=== PATIENT | female | born 1950 | race Caucasian/White ===

== ENCOUNTER → 2017-05-01 | Outpatient (CLI) | payer MEDICARE, OTHER ==
[~2017-05-01] MED LIST: ASCO500C14; ASP81TEC PO; ATOR10TA66 PO; CALC-72; CALC-787 PO; CALC-80 PO; CINNAMON; CPR500T PO; EST.625T PO; ESTR1TAB24 PO; FISH OIL 1,2001 EAC1 PO; HYDR1TAB PO; LSNP20T PO; METF750T2 PO; METR500T PO; MULT-608; MULT-874 PO; NIA500ERT PO; OMG1KC; SITA100T PO
[2017-05-01 10:42] LABS: BLOOD UREA NITROGEN 18 MG/DL (7-18); BUN/CREATININE RATIO 23; CREATININE SERUM 0.78 MG/DL (0.60-1.30); GFR ESTIMATED > 60
--- NOTE | 2017-05-01 11:38 | Diagnostic Imaging Report ---
PROCEDURE: US Thyroid. TECHNIQUE: Multiple real-time grayscale images were obtained of the thyroid in various projections. INDICATION: Followup thyroid nodules. FINDINGS: The right thyroid lobe is 5.3 x 2.3 x 1.8 cm. There is a 1 cm colloid cyst seen in the upper right thyroid lobe. In the lower aspect of the left thyroid lobe, there is a hypoechoic nodule with possible associated calcification and without internal vascularity seen. This is 8 mm in size and is similar to the prior exam of 11/23/2015. A few other smaller hypoechoic lesions are also seen in the thyroid gland with at least some (if not most of them) being colloid cysts. IMPRESSION: There are multiple colloid cysts seen. The most prominent possibly solid lesion is an 8 mm hypoechoic nodule in the lower aspect of the left thyroid lobe without change from the 11/23/2015 exam. Dictated by: Dictated on workstation # [id number]
== END ==
LOC: RAD 09:27
PROVIDERS: ATTEND Otolaryngology Otolaryngology/Facial Plastic Surgery
DX: E04.2 Nontoxic multinodular goiter (principal); E89.0 Postprocedural hypothyroidism
CPT/HCPCS: 36415; 76536; 82565; 84443; 84520

== ENCOUNTER → 2018-05-06 | Outpatient (CLI) | payer MEDICARE, OTHER ==
--- NOTE | 2018-05-06 12:36 | Diagnostic Imaging Report ---
INDICATION: Routine screening. COMPARISON: 03/11/2015 and 02/24/2014. TECHNIQUE: 2D and 3D bilateral screening mammography was performed with CAD. FINDINGS: Scattered fibroglandular densities are identified bilaterally. The parenchymal pattern is stable. A probable intramammary lymph node in the right breast is noted. No spiculated mass or malignant appearing microcalcifications are seen. The axillae are unremarkable. IMPRESSION: No mammographic features suspicious for malignancy are identified. ACR BI-RADS Category 2: Benign findings. Result letter will be mailed to the patient. Note: At least 10% of breast cancer is not imaged by mammography. Dictated by: Dictated on workstation # [id number]
== END ==
LOC: RAD 09:40
PROVIDERS: ATTEND Obstetrics & Gynecology
DX: Z12.31 Encounter for screening mammogram for malignant neoplasm of breast (principal)
CPT/HCPCS: 77067

== ENCOUNTER → 2019-05-11 | Outpatient (CLI) | payer MEDICARE, OTHER ==
--- NOTE | 2019-05-11 19:05 | Diagnostic Imaging Report ---
INDICATION: Routine screening. COMPARISON: Comparison is made with prior mammograms from 05/06/2018 and 03/11/2015. TECHNIQUE: 2-D and 3-D bilateral screening mammography was performed. The current study was also evaluated with a Computer Aided Detection (CAD) system. 3-D tomosynthesis was also performed and reviewed. FINDINGS: Scattered fibroglandular densities are identified bilaterally. Multiple nodular densities in the left breast appear to be fairly stable and most consistent with intramammary lymph nodes. Nodular density in the inferior and medial right breast appears more prominent. This is circumscribed and may represent an intramammary lymph node as well, but additional views are recommended. No suspicious microcalcifications are seen. Axillae are unremarkable. IMPRESSION: Slight increase in size of a circumscribed nodule in the lower-inner right breast mid depth. Further evaluation with additional views and ultrasound is recommended. ACR BI-RADS Category 0: Incomplete. (Needs additional imaging evaluation). Result letter will be mailed to the patient. Note: At least 10% of breast cancer is not imaged by mammography. Dictated by: Dictated on workstation # [id number]
== END ==
LOC: RAD 11:19
PROVIDERS: ATTEND Obstetrics & Gynecology
DX: Z12.31 Encounter for screening mammogram for malignant neoplasm of breast (principal); N63.14 Unspecified lump in the right breast, lower inner quadrant
CPT/HCPCS: 77067

== ENCOUNTER → 2019-05-11 | Outpatient (CLI) | payer MEDICARE, OTHER ==
--- NOTE | 2019-05-11 13:03 | Diagnostic Imaging Report ---
PROCEDURE: US Thyroid. TECHNIQUE: Multiple real-time grayscale images were obtained of the thyroid in various projections. INDICATION: Multinodular goiter. Correlation is made with prior thyroid ultrasound from 05/01/2017. FINDINGS: The right lobe of the thyroid measures 5.0 x 1.8 x 1.9 cm and the left lobe measures 4.4 x 1.8 x 2.2 cm. Bilateral hypoechoic nodules are present. Nodule in the lower pole of left lobe measures approximately 7 mm x 6 mm x 8 mm, similar to prior exam. There is a small calcification. Nodule in the upper pole of the right lobe measures 1.4 x 0.8 x 1.3 cm. This compares with approximately 1.0 x 1.0 x 0.7 cm. No new mass is seen. IMPRESSION: Slight increase in size of hypoechoic nodule in upper pole of right lobe when compared with examination two years earlier. Continued follow-up could be performed. Dictated by: Dictated on workstation # [id number]
== END ==
LOC: RAD 11:25
PROVIDERS: ATTEND Otolaryngology Otolaryngology/Facial Plastic Surgery
DX: E04.2 Nontoxic multinodular goiter (principal)
CPT/HCPCS: 36415; 76536; 84443

== ENCOUNTER → 2019-05-15 | Outpatient (CLI) | payer MEDICARE, OTHER ==
--- NOTE | 2019-05-15 16:34 | Diagnostic Imaging Report ---
INDICATION: Abnormal right mammogram. COMPARISON: Correlation made with diagnostic study of earlier the same day. EXAMINATION: Sonographic interrogation of the inner right breast was performed. FINDINGS: There are two lymph nodes identified in the inner portion of the right breast. One lymph node at 2:30 location, 4 cm from the nipple, measures 7 mm x 4 mm x 6 mm. This likely represents the nodule noted mammographically. A second lymph node is seen at 3 o'clock, 2 cm from the nipple, measuring 5 mm x 4 mm x 7 mm. No suspicious masses are seen. IMPRESSION: Intraparenchymal lymph nodes in the right breast, accounting for the mammographic density. Patient may return to routine annual screening mammography. ACR BI-RADS Category 2: Benign findings. Result letter will be mailed to the patient. Note: At least 10% of breast cancer is not imaged by mammography. Dictated on workstation # [id number]
--- NOTE | 2019-05-15 16:39 | Diagnostic Imaging Report ---
INDICATION: Right breast density. Patient presents for additional views. COMPARISON: Correlation is made with recent screening study from 05/11/2019. EXAMINATION: Unilateral right 2D and 3D diagnostic mammography was performed with CAD. This included spot compression, CC and ML views as well as conventional 90 degree lateral view. FINDINGS: Additional views confirmed the presence of a circumscribed nodule in the inner aspect of the right breast, approximately 5 cm from the nipple. This measures 6-7 mm in size. No suspicious calcifications are seen. IMPRESSION: Circumscribed nodule inner right breast, 5 cm from the nipple. Further evaluation with ultrasound is recommended and will be performed today. ACR BI-RADS Category 0: Incomplete. (Needs additional imaging evaluation). Result letter will be mailed to the patient. Note: At least 10% of breast cancer is not imaged by mammography. Dictated on workstation # [id number]
== END ==
LOC: RAD 12:57
PROVIDERS: ATTEND Obstetrics & Gynecology
DX: N63.10 Unspecified lump in the right breast, unspecified quadrant (principal)

== ENCOUNTER 2020-01-18 17:35 | Inpatient (IN) | payer MEDICARE, OTHER ==
[2020-01-18] VITALS (9 sets, daily range): BP systolic 97–144; BP diastolic 56–96
[~2020-01-18] VITALS: Ht 170 cm; Wt 116.5 kg
--- NOTE | 2020-01-18 17:46 | ED Cough/URI ---
General Chief Complaint: Respiratory Problems Stated Complaint: SOB/L SIDE BACK PAIN WITH BREATHING Source: patient Exam Limitations: no limitations History of Present Illness Date Seen by Provider: Jan 18, 2020 Time Seen by Provider: 17:44 Initial Comments To ER from home with reports of shortness of breath, pain on deep breathing. The pain is in the left lower thorax in a BM this morning. She had a total shoulder replacement about 8 weeks ago at a surgery Center in [place]. She's been homebound and mound [facility] with the exception of 2 trips to [facility] for physical therapy. She denies fevers or cough. Concern today is for PE. Timing/Duration: constant Severity/Quality: no cough Associated Symptoms: cough, shortness of breath Allergies and Home Medications Allergies Coded Allergies: No Known Drug Allergies (Verified , 12/16/09) Home Medications Atorvastatin Calcium 10 Mg Tablet, 10 MG PO HS, (Reported) Estradiol 1 Mg Tablet, 1 MG PO DAILY, (Reported) Hydrocodone Bit/Acetaminophen 1 Each Tablet, 1-2 EACH PO Q4HR PRN, (Reported) Lisinopril 20 Mg Tab, 40 MG PO DAILY, (Reported) Metformin Hcl 750 Mg Tab.sr.24h, 1.5 EACH PO BID WITH MEALS, (Reported) Multivitamin/Iron/Folic Acid 1 Each Tablet, 1 EACH PO DAILY, (Reported) Sitagliptin Phosphate 100 Mg Tablet, 0.5 TAB PO DAILY, (Reported) Patient Home Medication List Home Medication List Reviewed: Yes Review of Systems Review of Systems Constitutional: see HPI; No chills, No fever EENTM: see HPI Respiratory: see HPI, dyspnea on exertion, short of breath Cardiovascular: see HPI, chest pain (posterior left) Genitourinary: no symptoms reported Musculoskeletal: no symptoms reported Skin: no symptoms reported Psychiatric/Neurological: No Symptoms Reported Hematologic/Lymphatic: No Symptoms Reported Past [place]wx[place]-Hmednd-Ldxbuu Hx Patient Social History Recent Foreign Travel: No Contact w/Someone Who Travel: No Immunizations Up To Date Date of Influenza Vaccine: Jun 28, 2012 Past Medical History Reproductive Disorders: No Physical Exam Vital Signs - First Documented 01/18/20 17:38 Temp 37.4 Pulse 102 Resp 22 B/P (MAP) 139/84 (102) Pulse Ox 98 O2 Delivery Room Air Capillary Refill : Height: '" Weight: lbs. oz. kg; BMI Method: General Appearance: WD/WN, no apparent distress Eyes: Bilateral Eye Normal Inspection, Bilateral Eye PERRL, Bilateral Eye EOMI HEENT: PERRL/EOMI, normal ENT inspection Neck: non-tender, full range of motion Respiratory: no respiratory distress, no accessory muscle use, other (lung greenwood are clear, the posterior left thorax lower is tender to palpation) Cardiovascular: no murmur, tachycardia (tachycardic at about 110 regular narrow complex, oxygen saturation 99% room air.) Gastrointestinal: normal bowel sounds, soft Extremities: other (there is no obvious unilateral leg swelling there is no erythema of either lower extremity) Neurologic/Psychiatric: alert, normal mood/affect, oriented x 3 Skin: normal color, warm/dry Focused Exam Lactate Level 01/18/20 18:39: Lactic Acid Level Laboratory Tests Test 01/18/20 18:39 Progress/Results/Core Measures Suspected Sepsis SIRS Temperature: Pulse: Respiratory Rate: Laboratory Tests 01/18/20 17:40: White Blood Count 15.9H Blood Pressure / Mean: 01/18/20 18:39: Laboratory Tests 01/18/20 17:40: Creatinine 1.15, Platelet Count 232, Total Bilirubin 0.4 Results/Orders Lab Results Laboratory Tests Test 01/18/20 17:40 01/18/20 18:02 01/18/20 18:39 Range/Units White Blood Count 15.9 H 4.3-11.0 10^3/uL Red Blood Count 4.57 4.35-5.85 10^6/uL Hemoglobin 13.7 11.5-16.0 G/DL Hematocrit 42 35-52 % Mean Corpuscular Volume 91 80-99 FL Mean Corpuscular Hemoglobin 30 25-34 PG Mean Corpuscular Hemoglobin Concent 33 32-36 G/DL Red Cell Distribution Width 13.5 10.0-14.5 % Platelet Count 232 130-400 10^3/uL Mean Platelet Volume 10.2 7.4-10.4 FL Neutrophils (%) (Auto) 70 42-75 % Lymphocytes (%) (Auto) 23 12-44 % Monocytes (%) (Auto) 6 0-12 % Eosinophils (%) (Auto) 1 0-10 % Basophils (%) (Auto) 0 0-10 % Neutrophils # (Auto) 11.1 H 1.8-7.8 X 10^3 Lymphocytes # (Auto) 3.7 1.0-4.0 X 10^3 Monocytes # (Auto) 0.9 0.0-1.0 X 10^3 Eosinophils # (Auto) 0.2 0.0-0.3 10^3/uL Basophils # (Auto) 0.0 0.0-0.1 10^3/uL Neutrophils % (Manual) 61 % Lymphocytes % (Manual) 25 % Monocytes % (Manual) 2 % Eosinophils % (Manual) 3 % Basophils % (Manual) 1 % Reactive Lymphocytes 8 % Blood Morphology Comment NORMAL Sodium Level 140 135-145 MMOL/L Potassium Level 4.1 3.6-5.0 MMOL/L Chloride Level 107 98-107 MMOL/L Carbon Dioxide Level 19 L 21-32 MMOL/L Anion Gap 14 5-14 MMOL/L Blood Urea Nitrogen 16 7-18 MG/DL Creatinine 1.15 0.60-1.30 MG/DL Estimat Glomerular Filtration Rate 47 BUN/Creatinine Ratio 14 Glucose Level 132 H 70-105 MG/DL Calcium Level 9.8 8.5-10.1 MG/DL Corrected Calcium 9.7 8.5-10.1 MG/DL Total Bilirubin 0.4 0.1-1.0 MG/DL Aspartate Amino Transf (AST/SGOT) 23 5-34 U/L Alanine Aminotransferase (ALT/SGPT) 40 0-55 U/L Alkaline Phosphatase 66 40-136 U/L Troponin I < 0.028 <0.028 NG/ML B-Type Natriuretic Peptide < 10.0 <100.0 PG/ML Total Protein 8.2 6.4-8.2 GM/DL Albumin 4.1 3.2-4.5 GM/DL Urine Color YELLOW Urine Clarity CLEAR Urine pH 6.0 5-9 Urine Specific [place] >=1.030 1.016-1.022 Urine Protein 3+ H NEGATIVE Urine Glucose (UA) NEGATIVE NEGATIVE Urine Ketones TRACE H NEGATIVE Urine Nitrite POSITIVE H NEGATIVE Urine Bilirubin NEGATIVE NEGATIVE Urine Urobilinogen 0.2 < = 1.0 MG/DL Urine Leukocyte Esterase 1+ H NEGATIVE Urine RBC (Auto) TRACE-L NEGATIVE Urine RBC NONE /HPF Urine WBC 50-100 H /HPF Urine Squamous Epithelial Cells 25-50 H /HPF Urine Crystals NONE /LPF Urine Bacteria MODERATE H /HPF Urine Casts NONE /LPF Urine Mucus NEGATIVE /LPF Urine Culture Indicated YES My Orders Orders - JINNY LINARES [employer] Cbc With Automated Diff (01/18/20 17:36) Comprehensive Metabolic Panel (01/18/20 17:36) Ct Angio Chest W (01/18/20 17:36) Ed Iv/Invasive Line Start (01/18/20 17:36) Ekg Tracing (01/18/20 17:36) Troponin I (01/18/20 17:36) BNP (01/18/20 17:36) Ua Culture If Indicated (01/18/20 18:01) Manual Differential (01/18/20 17:40) Iohexol Injection (Omnipaque 350 Mg/Ml 1 (01/18/20 18:15) Received Contrast (Hold Metformin- Contr (01/18/20 18:15) Ns (Ivpb) (Sodium Chloride 0.9% Ivpb Bag (01/18/20 18:15) Procalcitonin (Pct) (01/18/20 18:15) Ns Iv 1000 Ml (Sodium Chloride 0.9%) (01/18/20 18:30) Urine Culture (01/18/20 18:02) Ceftriaxone For Iv Use (Rocephin For I (01/18/20 18:30) Blood Culture (01/18/20 18:25) Lactic Acid Analyzer (01/18/20 18:25) Medications Given in ED Current Medications Medications Dose Ordered Sig/Ronald Route Start Time Stop Time Status Last Admin Dose Admin Ceftriaxone Sodium 1000 mg/ Sterile Water 10 ml @ 200 mls/hr ONCE ONCE IV 01/18/20 18:30 01/18/20 18:32 DC 01/18/20 18:33 200 MLS/HR Iohexol 100 ml ONCE ONCE IV 01/18/20 18:15 01/18/20 18:36 DC 01/18/20 18:34 100 ML Sodium Chloride 100 ml ONCE ONCE IV 01/18/20 18:15 01/18/20 18:36 DC 01/18/20 18:34 100 ML Vital Signs/I&O 01/18/20 17:38 Temp 37.4 Pulse 102 Resp 22 B/P (MAP) 139/84 (102) Pulse Ox 98 O2 Delivery Room Air Capillary Refill : Departure Communication (Admissions) Time/Spoke to Admitting Phy: 18:48 Dr. Liang, we'll admit. The patient has no sign of right ventricular strain based on CT imaging, all little tachycardia at 104, oxygen 99% room air, respiratory rate 19 blood pressure 136/65. I'll use Rocephin for the urinary tract infection, creatinine clearance is sufficient for Lovenox for treatment. She does however have sign of right heart strain on ECG with S1 q3 T3 pattern[address] Liang as well as the physician from [facility]. I also notified her daughter Earline Turcios who is a nurse practitioner at [facility] phone number [phone]. Impression Primary Impression: Bilateral pulmonary embolism Additional Impression: Urinary tract infection Disposition: ADMITTED INPATIENT Condition: Stable Admissions Decision to Admit Reason: Admit from ER (General) Decision to Admit/Date: Jan 18, 2020 Time/Decision to Admit Time: 18:51 Departure-Patient Inst. Referrals: NING SHETH MD (PCP/Family) Primary Care Physician Images Torso/Trunk 1 - Tenderness JINNY LINARES APRN Jan 18, 2020 17:46
[2020-01-18 18:01] LABS: BASOPHILS % (AUTO) 0 % (0-10); EOSINOPHILS # (AUTO) 0.2 10^3/uL (0.0-0.3); EOSINOPHILS % (AUTO) 1 % (0-10); HEMATOCRIT 42 % (35-52); HEMOGLOBIN 13.7 G/DL (11.5-16.0); LYMPHOCYTES # (AUTO) 3.7 X 10^3 (1.0-4.0); LYMPHOCYTES % (AUTO) 23 % (12-44); MEAN CORPUSCULAR HEMOGLOBIN 30 PG (25-34); MEAN CORPUSCULAR HGB CONC 33 G/DL (32-36); MEAN CORPUSCULAR VOLUME 91 FL (80-99); MEAN PLATELET VOLUME 10.2 FL (7.4-10.4); MONOCYTES # (AUTO) 0.9 X 10^3 (0.0-1.0); MONOCYTES % (AUTO) 6 % (0-12); NEUTROPHILS # (AUTO) 11.1 X 10^3 (1.8-7.8); NEUTROPHILS % (AUTO) 70 % (42-75); PLATELET COUNT 232 10^3/uL (130-400); RED CELL DISTRIBUTION WIDTH 13.5 % (10.0-14.5); WHITE BLOOD COUNT 15.9 10^3/uL (4.3-11.0)
[2020-01-18 18:13] LABS: BILIRUBIN,TOTAL 0.4 MG/DL (0.1-1.0); BUN/CREATININE RATIO 14; CALCIUM 9.8 MG/DL (8.5-10.1); CARBON DIOXIDE 19 MMOL/L (21-32); CHLORIDE 107 MMOL/L (98-107); CREATININE SERUM 1.15 MG/DL (0.60-1.30); GFR ESTIMATED 47; GLUCOSE 132 MG/DL (70-105); POTASSIUM 4.1 MMOL/L (3.6-5.0); SODIUM 140 MMOL/L (135-145)
[2020-01-18 18:14] LABS: ALANINE AMINOTRANSFERASE 40 U/L (0-55); ALBUMIN 4.1 GM/DL (3.2-4.5); ALKALINE PHOSPHATASE 66 U/L (40-136); TOTAL PROTEIN 8.2 GM/DL (6.4-8.2)
[2020-01-18] MEDS ORDERED: NS 100 ML (IVPB) BAG IV ONE (18:15)
[2020-01-18] MEDS ORDERED: IOHEXOL 350 MG/ML 100 ML (OMNIPAQUE 350) VIAL IV ONE (18:15)
[2020-01-18] MEDS ORDERED: HOLD METFORMIN - RECEIVED CONTRAST 20 ML VIAL IV SCH (18:15)
[2020-01-18 18:16] LABS: BILIRUBIN,URINE NEGATIVE (NEGATIVE); CLARITY,URINE CLEAR; COLOR,URINE YELLOW; GLUCOSE, URINE (UA) NEGATIVE (NEGATIVE); KETONES,URINE TRACE (NEGATIVE); LEUKOCYTE ESTERASE ,URINE 1+ (NEGATIVE); NITRITE,URINE POSITIVE (NEGATIVE); PROTEIN,URINE 3+ (NEGATIVE)
[2020-01-18 18:23] LABS: BACTERIA,URINE MODERATE /HPF; SQUAMOUS EPITHELIAL CELL,UR 25-50 /HPF; WBC,URINE 50-100 /HPF
[2020-01-18] MEDS ORDERED: cefTRIAXone FOR IV USE 1,000 MG in WATER (STERILE) FOR INJECTION 10 ML IV ONE (18:30)
[2020-01-18] MEDS ORDERED: NS IV 1000 ML 1,000 ML IV SCH (18:30)
[2020-01-18 18:43] LABS: BASOPHILS % (MANUAL) 1 %; EOSINOPHILS % (MANUAL) 3 %; LYMPHOCYTES % (MANUAL) 25 %; MONOCYTES % (MANUAL) 2 %; NEUTROPHILS % (MANUAL) 61 %; RBC MORPH NORMAL; REACTIVE LYMPHOCYTES 8 %
--- NOTE | 2020-01-18 18:50 | Diagnostic Imaging Report ---
PROCEDURE: CT angiography of the chest with contrast. TECHNIQUE: Multiple contiguous axial images were obtained through the chest after uneventful bolus administration of intravenous contrast. 3D reconstructed CTA MIP acquisitions were also performed. Auto Exposure Controls were utilized during the CT exam to meet ALARA standards for radiation dose reduction. INDICATION: Shortness of breath and chest pain. Recent surgery. COMPARISON is made with a prior chest radiograph from 12/01/2012. FINDINGS: There is adequate opacification of the pulmonary arterial system for diagnostic evaluation. Examination is positive for bilateral pulmonary emboli. There is involvement of the interlobar arteries of all 5 lobes. There is some involvement of the distal left main pulmonary artery. There are no findings of a saddle embolus. There are no CT findings to suggest right ventricular strain. The main pulmonary arteries are normal in size. Lungs demonstrate minimal dependent atelectasis of the left base. There is no focal infiltrate or consolidation. There is no effusion or pneumothorax. No pulmonary nodule or mass. 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 Thoracic aorta demonstrates no dissection or aneurysm. Coronary calcifications are present. There is no pericardial collection. Visualized portion of the upper abdomen demonstrates no acute process. Right shoulder arthroplasty. There are degenerative features present within the spine without acute or suspicious osseous abnormality. IMPRESSION: 1. Examination is positive for 5 lobed pulmonary emboli beginning at the level of the interlobar arteries with some minimal involvement of the left main pulmonary artery. There is no saddle embolus. There are no findings of right ventricular strain. 2. Lungs appear clear 3. Aorta is unremarkable. Coronary artery calcifications are present. 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 4. No pathologic adenopathy. Findings called to Kenny Woodruff APRN, in the emergency department at the time of dictation. Dictated by: Dictated on workstation # [id number]
[2020-01-18] MEDS ORDERED: ENOXAPARIN 60 MG/0.6 ML (LOVENOX) SYR SC ONE (19:00)
--- NOTE | 2020-01-18 19:01 | NUR ---
REPORT TO NAVARRO STANTON
--- NOTE | 2020-01-18 19:08 | NUR ---
CALF MEASURMENTS- R 16.5, L 17.0. REPORTED TO JINNY LINARES APRN
[2020-01-18] MEDS ORDERED: APIXABAN 5 MG (ELIQUIS) TABLET PO ONE (19:15)
--- NOTE | 2020-01-18 20:56 | NUR ---
MAT score of 2 Albuterol PRN indicated Monitor and Reassess Q72HRs and PRN Addendum: 01/18/20 at 2056 by ALEJO LEVIN RT Amended: Links added.
[2020-01-18] MEDS ORDERED: RT-ALBUTEROL SULF 2.5 MG/3 ML PRE-MIX VIAL INH PRN (21:00)
[2020-01-18] MEDS: NS IV 1000 ML 1,000 ML IV SCH (22:53)
[2020-01-18] MEDS ORDERED: ONDANSETRON 4 MG/2 ML (SDV) Z0FRAN IV PRN (23:00)
[2020-01-18] MEDS ORDERED: HYDROcodone/APAP 5 MG/325 MG (LORTAB) TAB PO PRN (23:00)
[2020-01-19] VITALS (16 sets, daily range): BP systolic 117–159; BP diastolic 65–86
[2020-01-19 03:47] LABS: BASOPHILS % (AUTO) 0 % (0-10); EOSINOPHILS # (AUTO) 0.1 10^3/uL (0.0-0.3); EOSINOPHILS % (AUTO) 1 % (0-10); HEMATOCRIT 37 % (35-52); LYMPHOCYTES # (AUTO) 3.4 X 10^3 (1.0-4.0); LYMPHOCYTES % (AUTO) 30 % (12-44); MEAN CORPUSCULAR HEMOGLOBIN 30 PG (25-34); MEAN CORPUSCULAR HGB CONC 33 G/DL (32-36); MEAN CORPUSCULAR VOLUME 92 FL (80-99); MEAN PLATELET VOLUME 10.6 FL (7.4-10.4); MONOCYTES % (AUTO) 9 % (0-12); NEUTROPHILS % (AUTO) 61 % (42-75); PLATELET COUNT 161 10^3/uL (130-400); RED CELL DISTRIBUTION WIDTH 13.4 % (10.0-14.5); WHITE BLOOD COUNT 11.5 10^3/uL (4.3-11.0)
[2020-01-19 04:06] LABS: BUN/CREATININE RATIO 18; CALCIUM 8.4 MG/DL (8.5-10.1); CARBON DIOXIDE 15 MMOL/L (21-32); CHLORIDE 111 MMOL/L (98-107); CREATININE SERUM 0.76 MG/DL (0.60-1.30); GFR ESTIMATED > 60; GLUCOSE 164 MG/DL (70-105); MAGNESIUM 1.3 MG/DL (1.6-2.4); PHOSPHORUS 3.3 MG/DL (2.3-4.7); POTASSIUM 4.3 MMOL/L (3.6-5.0); SODIUM 138 MMOL/L (135-145)
[2020-01-19 04:07] LABS: ALANINE AMINOTRANSFERASE 32 U/L (0-55); ALBUMIN 3.3 GM/DL (3.2-4.5); ALKALINE PHOSPHATASE 55 U/L (40-136); BILIRUBIN,TOTAL 0.4 MG/DL (0.1-1.0); TOTAL PROTEIN 6.8 GM/DL (6.4-8.2)
[2020-01-19] MEDS: POTASSIUM CL 10MEQ/50ML IVPB 50 ML IV SCH (04:09)
[2020-01-19] MEDS: MAGNESIUM 1 GM/100 ML IVPB 100 ML IV SCH ×4 (04:10→05:56)
[2020-01-19] MEDS: KCL 20 MEQ TAB (K-DUR) PO SCH (04:10)
[2020-01-19] MEDS: inSUlin ASPART (NovoLOG) 1 UNIT/0.01 ML (CHARGE PER UNIT) SC SCH ×4 (04:49→21:18)
[2020-01-19] MEDS: NS IV 1000 ML 1,000 ML IV SCH ×2 (05:28→21:16)
--- NOTE | 2020-01-19 06:50 | Diagnostic Imaging Report ---
INDICATION: Bilateral pulmonary embolism. TECHNIQUE: Single view chest 3:25 AM. CORRELATION STUDY: 12/01/2012 FINDINGS: Heart size is generally stable. Vasculature perhaps slightly increased. Mildly prominent interstitial markings throughout both lung greenwood. No definitive infiltrate or findings suggest significant pulmonary infarct. Unchanged elevated right diaphragm. IMPRESSION: 1. Vasculature perhaps slightly increased. Heart size generally stable. No infiltrate. Dictated by: Dictated on workstation # [id number]
[2020-01-19] MEDS ORDERED: GLIM4TAB5 PO (08:38)
[2020-01-19] MEDS ORDERED: MULT-192 PO (08:38)
[2020-01-19] MEDS ORDERED: LISI40TA PO (08:38)
[2020-01-19] MEDS ORDERED: METF-397 PO (08:38)
[2020-01-19] MEDS ORDERED: LYSI500T10 PO (08:38)
[2020-01-19] MEDS ORDERED: CALC-151 PO (08:38)
[2020-01-19] MEDS ORDERED: DULA1.5P2 SC (08:38)
[2020-01-19] MEDS ORDERED: INSU100I29 SC (08:38)
[2020-01-19] MEDS: PANTOPRAZOLE 40 MG (PROTONIX) VIAL IV SCH (08:48)
[2020-01-19] MEDS: APIXABAN 5 MG (ELIQUIS) TABLET PO SCH ×2 (08:48→20:42)
--- NOTE | 2020-01-19 09:12 | Diagnostic Imaging Report ---
INDICATION: History of pulmonary emboli. TECHNIQUE: The bilateral lower extremity venous Doppler study was performed in the routine fashion with color flow Doppler and waveform analysis. FINDINGS: On the right side, the common femoral vein, profunda femoris vein, popliteal vein, and calf veins are patent and compressible. On the left side, there is extensive deep vein thrombosis involving the common femoral vein, profunda femoris vein, SFV, and superior portions of the calf veins. IMPRESSION: Extensive acute deep vein thrombosis throughout the left lower extremity as above. The right-sided venous structures are normal. Dictated by: Dictated on workstation # [id number]
--- NOTE | 2020-01-19 09:58 | NUR ---
SPOKE WITH THE PT AND WENT THRU THE EXT MED HISTORY TO COMPLETE THE MED REC. GLIMEPIRIDE 4MG:LAST FILL WAS ON 07-14-19 #90/90 DS HOWEVER ON 09-30-2019 PT WAS SWITCHED TO FARXIGA 10MG #90/90DS. AFTER BEING ON FARXIGA FOR 3 MONTHS SHE WAS UNHAPPY WITH THE SIDE EFFECTS AND SWITCHED BACK TO GLIMEPIRIDE 4MG WITHIN THE LAST MONTH. OTC MEDS: L-LYSINE CITRACAL MTV
--- NOTE | 2020-01-19 11:05 | NUR ---
Pastoral care visit.
--- NOTE | 2020-01-19 11:46 | History & Physical-Hospitalist ---
History of Present Illness HPI/Chief Complaint CC: Dyspnea HPI: This is a 69yoWF clinic patient of Dr Beebe in [place] who presents to the [facility] ER with dyspnea for 2 days after she climbed into a high truck and noted she "pulled" her left calf muscle. The dyspnea was progressive enough but no report of fever and upon evaluation she was found to have bilateral PE on CT scan along with UTI. RV strain noted so Dr Lindsay was consulted. Lovenox was started then changed to OAC in meantime and has remained stable since admit. To note she had right reverse shoulder replaced by [facility] surgeon 8 weeks ago and has been completing PT for that and doing very well. She does not wear O2 at home and does not wear CPAP and never had a sleep study. Left leg did note DVT on doppler. Source: patient, RN/MD Exam Limitations: no limitations Date Seen 01/19/20 Time Seen by a Provider: 09:30 Attending Physician Sierra Liang Jay L MD Referring Physician Date of Admission Jan 18, 2020 at 18:40 Home Medications & Allergies Home Medications Reviewed patient Home Medication Reconciliation performed by pharmacy medication reconciliations software validation technician and/or nursing. Patients Allergies have been reviewed. 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) Alcohol Use: Denies Use Recreational Drug Use: No Smoking Status: Never a Smoker 2nd Hand Smoke Exposure: No Recent Foreign Travel: No Contact w/other who traveled: No Recent Hopitalizations: Yes Recent Infectious Disease Expo: No Immunizations Up To Date Date of Pneumonia Vaccine: Oct 28, 2017 Date of Influenza Vaccine: Aug 28, 2019 Past Medical History Surgeries: Orthopedic Cardiac: High Cholesterol, Hypertension Reproductive: No Endocrine: Diabetes, Insulin dep Are Your Blood Sugars Over 250: No History of Blood Disorders: No Review of Systems Constitutional: see HPI Respiratory: dyspnea on exertion Musculoskeletal: joint pain Physical Exam Physical Exam Vital Signs Vital Signs - First Documented 01/18/20 01/18/20 17:38 20:50 Temp 37.4 Pulse 102 Resp 22 B/P (MAP) 139/84 (102) Pulse Ox 98 O2 Delivery Room Air FiO2 99 Capillary Refill : Less Than 3 Seconds Height, Weight, BMI Height: '" Weight: lbs. oz. kg; 40.31 BMI Method: General Appearance: No Apparent Distress, WD/WN, Obese Eyes: Right Eye Normal Inspection, Right Eye PERRL HEENT: PERRL/EOMI, Normal ENT Inspection, Pharynx Normal, Moist Mucous Membranes Neck: Full Range of Motion, Normal Inspection, Non Tender Respiratory: Chest Non Tender, Lungs Clear, Normal Breath Sounds, No Accessory Muscle Use, No Respiratory Distress, Decreased Breath Sounds Cardiovascular: Regular Rate, Rhythm, No Edema, No Gallop, No JVD, No Murmur, Normal Peripheral Pulses Gastrointestinal: Normal Bowel Sounds, No Organomegaly, No Pulsatile Mass, Non Tender, Soft Back: Normal Inspection, No CVA Tenderness, No Vertebral Tenderness Extremity: Normal Capillary Refill, Normal Inspection, Normal Range of Motion, Non Tender, No Calf Tenderness, No Pedal Edema Neurologic/Psychiatric: Alert, Oriented x3, No Motor/Sensory Deficits, Normal Mood/Affect, machining technician II-XII Norm as Tested Skin: Normal Color, Warm/Dry Lymphatic: No Adenopathy Results Results/Procedures Labs Laboratory Tests 01/18/20 17:40 01/19/20 03:15 Patient resulted labs reviewed. Assessment/Plan Admission Diagnosis Assessment: Acute bilateral PE non-saddle type Recent right reverse shoulder replacement 8 weeks ago in Left leg DVT acute on doppler today DM HTN HLP Suspect STEPHEN Acute UTI Suspect STEPHEN? Obesity Plan: OAC Dr Lindsay ECHO Abx UCx DC tomorrow? Admission Status: Inpatient Order (span 2 midnights) Reason for Inpatient Admission: bilateral PE Diagnosis/Problems Diagnosis/Problems (1) Bilateral pulmonary embolism Status: Acute (2) Diabetes (3) Left leg DVT (4) Hx of shoulder replacement (5) Obesity (6) Leukocytosis (7) Urinary tract infection Status: Acute Clinical Quality Measures DVT/VTE Risk/Contraindication: Risk Factor Score Per Nursin RFS Level Per Nursing on Admit: 4+=Very High SIERRA LIANG DO Jan 19, 2020 11:46
[2020-01-19] MEDS ORDERED: RIVA1TAB PO (11:59)
[2020-01-19] MEDS ORDERED: CEFD300C3 PO (11:59)
[2020-01-19] MEDS ORDERED: NON-FORMULARY MEDICATION 1 EA EA (Lysine (l-Lysine) 500 MG) PO PRN (12:00)
[2020-01-19] MEDS ORDERED: NON-FORMULARY MEDICATION 1 EA EA (Dulaglutide (Trulicity) 1.5 MG) SC SCH (12:00)
[2020-01-19] MEDS ORDERED: APIX5TAB PO (14:12)
--- NOTE | 2020-01-19 14:18 | NUR ---
PHARMACY EDUCATION: NOHELIA FOR PE/DVT Provided education to the patient about anticoagulation. Discussed side effects including bruising and bleeding. Discussed how to take (2 tabs bid x 6 more days then 1 tab bid). answered all the patient questions. Addendum: 01/19/20 at 1426 by NEGRITA FULLER [facility] PROVIDED ELIKARINIS SAVINGS CARD - CALLED INFORMATION TO PATIENTS PHARMACY.
--- NOTE | 2020-01-19 14:25 | NUR ---
CLARIFIED ORDERS FOR XARELTO ON DISCHARGE. CLARIFIED WITH DR ROSEN AND DR PICKARD; CHANGED TO ELIQUIS PE DOSING ON DISCHARGE.
[2020-01-19] MEDS ORDERED: lisINopril 40 MG (PRINIVIL) TABLET PO SCH (21:00)
--- NOTE | 2020-01-19 21:41 | Consultation-Cardiology ---
HPI-Cardiology Cardiology Consultation: Date of Consultation 01/19/20 Date of Admission Attending Physician Sierra Rosen DO Admitting Physician Maulik Beebe MD Consulting Physician Shashank LINDSAY MD HPI: Time Seen by a Provider: 11:00 Chief Complaint: Chest pain This is a 69-year-old lady who does not have history of active smoking. No family history of CAD. She had shoulder surgery recently and presented with pleuritic chest pain. Mild to moderate. Also complains of shortness of breath. Review of Systems-Cardiology Review of Systems Constitutional: As described under HPI; No As described under HPI, No no symptoms reported, No chills, No fever, No lightheadedness Eyes: No As described under HPI, No no symptoms reported, No blindness, No blurred vision, No contact lenses, No drainage, No decreased acuity, No foreign body sensation, No pain, No vision change Ears/Nose/Throat: No As described under HPI, No no symptoms reported, No chronic hearing loss, No ear discharge, No ear pain, No nasal drainage, No ulcerations Respiratory: No no symptoms reported; As described under HPI; No As described under HPI, No cough, No orthopnea; shortness of breath; No SOB with excertion Cardiovascular: No no symptoms reported; As described under HPI; No As described under HPI; chest pain; No edema, No irregular heart rate, No lightheadedness, No palpitations Gastrointestinal: No no symptoms reported, No As described under HPI, No abdomen distended, No abdominal pain, No blood streaked bowels, No constipation, No diarrhea, No nausea, No vomiting, No stool coloration changes Genitourinary: No As described under HPI, No burning, No dysuria, No discharge, No frequency, No flank pain, No hematuria, No urgency : Yes : No Skin: No rash, No skin related problems, No ulcerations Psychiatric/Neurological: No anxiety, No depression, No seizure, No focal weakness, No syncope Hematologic: No bleeding abnormalities DMZ-Cldllb-Luqhbn Hx Patient Social History Marrital Status: 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 Allergies and Home Medications Allergies Coded Allergies: No Known Drug Allergies (Verified , 12/16/09) Home Medications Apixaban 5 Mg Tablet, 5 MG PO BID TAKE 2 TABLETS BID X 6 DAYS (LAST DOSE 01/26/20), THEN 1 TABLET BID Prescribed by: SIERRA ROSEN on 01/19/20 1412 Calcium Citrate/Vitamin D3 1 Each Tablet, 1 EACH PO DAILY, (Reported) Cefdinir 300 Mg Capsule, 300 MG PO BID Prescribed by: SIERRA ROSEN on 01/19/20 1159 Dulaglutide 1.5 Mg/0.5 Ml Pen.injctr, 1.5 MG SC SATURDAY, (Reported) USES ONCE WEEKLY ON SUNDAYS Glimepiride 4 Mg Tablet, 4 MG PO DAILY, (Reported) LAST FILLED 07-14-2019 #90/90 DAY SUPPLY (WAS TAKING GLIMEPIRIDE THEN SWI TCHED TO [facility] AND IS NOW TAKING GLIMEPIRIDE AGAIN) Insulin Detemir 100 Unit/1 Ml Insuln.pen, 33 UNITS SC BID, (Reported) Lisinopril 40 Mg Tablet, 40 MG PO HS, (Reported) Lysine 500 Mg Tablet, 500 MG PO DAILY PRN for FEVER BLISTER , (Reported) Metformin HCl 500 Mg Tablet, 1,000 MG PO BID, (Reported) TAKES 2 (500MG) TABS TWICE DAILY Multivitamin 1 Each Tab.chew, 2 EACH PO DAILY, (Reported) Patient Home Medication List Home Medication List Reviewed: Yes Physical Exam-Cardiology Physical Exam Vital Signs/I&O 01/20/20 01/20/20 01/20/20 01/20/20 04:00 06:39 08:06 10:00 Temp 36.6 36.6 36.4 Pulse 91 87 90 90 Resp 18 18 18 B/P (MAP) 141/69 (93) 140/81 (100) 140/81 Pulse Ox 96 97 97 O2 Delivery Room Air Room Air Room Air 01/20/20 00:00 Intake Total 1610 ml Output Total 2000 ml Balance -390 ml Capillary Refill : Less Than 3 Seconds Constitutional: appears stated age; No apparent distress; well-developed, well- nourished HEENT: PERRL; No discharge; hearing is well preserved, oral hygience is good; No ulceration, No xanthelasmas are seen Neck: No carotid bruit; carotid pulses are 2 + bilaterally Respiratory: chest is bilaterally symmetric, lungs clear to auscultation Cardiovascular: regular rate-rhythm, S1 and S2 Gastrointestinal: soft, audible bowel sounds; No spleenomegaly Rectal: deferred Extremities: normal range of motion, non-tender, normal inspection; No clubbing, No cyanosis; no lower extremity edema bilateral; No significant edema Neurologic/Psychiatric: no motor/sensory deficits, alert, normal mood/affect, oriented x 3, power is 5/5 both on sides Skin: No rash, No ulcerations Data Review Labs Laboratory Tests 01/19/20 16:13: Glucometer 133H 01/19/20 21:13: Glucometer 165H 01/20/20 03:02: White Blood Count 9.7, Red Blood Count 3.91L, Hemoglobin 11.8, Hematocrit 36, Mean Corpuscular Volume 91, Mean Corpuscular Hemoglobin 30, Mean Corpuscular Hemoglobin Concent 33, Red Cell Distribution Width 13.5, Platelet Count 182, Mean Platelet Volume 10.0, Neutrophils (%) (Auto) 55, Lymphocytes (%) (Auto) 35, Monocytes (%) (Auto) 7, Eosinophils (%) (Auto) 3, Basophils (%) (Auto) 0, Neutrophils # (Auto) 5.3, Lymphocytes # (Auto) 3.4, Monocytes # (Auto) 0.7, Eosinophils # (Auto) 0.3, Basophils # (Auto) 0.0, Sodium Level 140, Potassium Level 3.9, Chloride Level 110H, Carbon Dioxide Level 19L, Anion Gap 11, Blood Urea Nitrogen 12, Creatinine 0.73, Estimat Glomerular Filtration Rate > 60, BUN/Creatinine Ratio 16, Glucose Level 155H, Calcium Level 8.5, Phosphorus Level 3.1, Magnesium Level 1.6 Microbiology 01/18/20 MRSA Screen - Final, Complete MRSA not isolated 01/18/20 Blood Culture - Preliminary, Resulted No growth 01/18/20 Urine Culture - Final, Complete Mixed Bacterial Marianela Escherichia coli ECG Impression ECG Initial ECG Rhythm: S.Tach Comment RBBB A/P-Cardiology Assessment/Admission Diagnosis Bilateral PE, Left DVT, Recent orthopedic surgery. Plan Bilateral PE however hemodynamically stable. We will request an echocardiogram. No indication for PE intervention. High dose Eliquis therapy for the first 7- 10 days followed by Eliquis 5 mg twice a day for 6 months. Since the patient has provoked pulmonary embolism due to recent surgery and being nonambulatory, 6 months of oral anticoagulation is recommended. DVT: Femoral-popliteal DVT with no significant swelling. Continue oral anticoagulation. Thank you for your consultation. Please call me if you have any questions. Jules Lindsay MD, FACP, FACC, [facility], FHRS, CCDS Interventional Cardiology Cardiac Electrophysiology Vascular Medicine and Endovascular Interventions Clinical Quality Measures DVT/VTE Risk/Contraindication: Risk Factor Score Per Nursin RFS Level Per Nursing on Admit: 4+=Very High Shashank LINDSAY MD Jan 19, 2020 21:41
[2020-01-19] MEDS ORDERED: cefTRIAXone 1,000 MG/SWFI 10 ML IV PUSH IV SCH ×2 (23:00)
[2020-01-20] VITALS: BP 139/83
[2020-01-20 03:23] LABS: BASOPHILS % (AUTO) 0 % (0-10); EOSINOPHILS # (AUTO) 0.3 10^3/uL (0.0-0.3); EOSINOPHILS % (AUTO) 3 % (0-10); HEMATOCRIT 36 % (35-52); HEMOGLOBIN 11.8 G/DL (11.5-16.0); LYMPHOCYTES # (AUTO) 3.4 X 10^3 (1.0-4.0); LYMPHOCYTES % (AUTO) 35 % (12-44); MEAN CORPUSCULAR HEMOGLOBIN 30 PG (25-34); MEAN CORPUSCULAR HGB CONC 33 G/DL (32-36); MEAN CORPUSCULAR VOLUME 91 FL (80-99); MONOCYTES # (AUTO) 0.7 X 10^3 (0.0-1.0); MONOCYTES % (AUTO) 7 % (0-12); NEUTROPHILS # (AUTO) 5.3 X 10^3 (1.8-7.8); NEUTROPHILS % (AUTO) 55 % (42-75); PLATELET COUNT 182 10^3/uL (130-400); RED CELL DISTRIBUTION WIDTH 13.5 % (10.0-14.5); WHITE BLOOD COUNT 9.7 10^3/uL (4.3-11.0)
[2020-01-20 03:47] LABS: BUN/CREATININE RATIO 16; CALCIUM 8.5 MG/DL (8.5-10.1); CARBON DIOXIDE 19 MMOL/L (21-32); CHLORIDE 110 MMOL/L (98-107); CREATININE SERUM 0.73 MG/DL (0.60-1.30); GFR ESTIMATED > 60; GLUCOSE 155 MG/DL (70-105); MAGNESIUM 1.6 MG/DL (1.6-2.4); PHOSPHORUS 3.1 MG/DL (2.3-4.7); POTASSIUM 3.9 MMOL/L (3.6-5.0); SODIUM 140 MMOL/L (135-145)
[2020-01-20 04:00] VITALS: BP 141/69
[2020-01-20] MEDS: POTASSIUM CL 10MEQ/50ML IVPB 50 ML IV SCH (04:00)
[2020-01-20] MEDS: MAGNESIUM 1 GM/100 ML IVPB 100 ML IV SCH ×3 (04:00→04:10)
[2020-01-20] MEDS: inSUlin ASPART (NovoLOG) 1 UNIT/0.01 ML (CHARGE PER UNIT) SC SCH (04:01)
[2020-01-20] MEDS: KCL 20 MEQ TAB (K-DUR) PO SCH (04:01)
[2020-01-20] MEDS: NS IV 1000 ML 1,000 ML IV SCH (04:09)
[2020-01-20] MEDS ORDERED: GLIMEPIRIDE 4 MG (AMARYL) TAB PO SCH (06:30)
[2020-01-20] MEDS ORDERED: MULTIVIT W/MINERALS TAB (THERAGRAN M) PO SCH (07:00)
--- NOTE | 2020-01-20 07:36 | Diagnostic Imaging Report ---
INDICATION: UTI. Comparison with 01/19/2020. FINDINGS: Portable chest. The lungs are well-aerated and clear. There is no air-trapping. Heart is not enlarged. No pneumothorax or pleural effusion. No bony abnormalities. IMPRESSION: Negative portable chest. Dictated by: Dictated on workstation # [id number]
[2020-01-20 08:06] VITALS: BP 140/81
[2020-01-20] MEDS ORDERED: CALCIUM CITRATE PO SCH (09:00)
[2020-01-20] MEDS ORDERED: VITAMIN D3 PO SCH (09:00)
[2020-01-20] MEDS ORDERED: [UNRECOGNIZED DRUG - OTHER] PO SCH (09:00)
[2020-01-20] MEDS: PANTOPRAZOLE 40 MG (PROTONIX) VIAL IV SCH (09:03)
[2020-01-20] MEDS: APIXABAN 5 MG (ELIQUIS) TABLET PO SCH (09:03)
[2020-01-20 10:00] VITALS: BP 140/81
--- NOTE | 2020-01-20 10:10 | Discharge Summary ---
Discharge Summary Hospital Course Was the Problem List Reviewed?: Yes Problems/Dx: (1) Bilateral pulmonary embolism Status: Acute (2) Diabetes (3) Left leg DVT (4) Hx of shoulder replacement (5) Obesity (6) Leukocytosis (7) Urinary tract infection Status: Acute Hospital Course Date of Admission: Jan 18, 2020 at 18:40 Admission Diagnosis : Family Physician/Provider: Maulik Beebe MD Date of Discharge: 01/20/20 Discharge Diagnosis: Bilateral PE, Left acute DVT, DM, HTN, HLP, obesity Hospital Course: Brief stay after admitted with bilateral PE placed on OAC and USG revealed left leg DVT. Patient remained stable and all results were non-critical and UTI treated and patient was eager for DC home with close f/u PCP. Labs and Pending Lab Test: Laboratory Tests 01/19/20 12:00: Glucometer 197H 01/19/20 16:13: Glucometer 133H 01/19/20 21:13: Glucometer 165H 01/20/20 03:02: White Blood Count 9.7, Red Blood Count 3.91L, Hemoglobin 11.8, Hematocrit 36, Mean Corpuscular Volume 91, Mean Corpuscular Hemoglobin 30, Mean Corpuscular Hemoglobin Concent 33, Red Cell Distribution Width 13.5, Platelet Count 182, Mean Platelet Volume 10.0, Neutrophils (%) (Auto) 55, Lymphocytes (%) (Auto) 35, Monocytes (%) (Auto) 7, Eosinophils (%) (Auto) 3, Basophils (%) (Auto) 0, Neutrophils # (Auto) 5.3, Lymphocytes # (Auto) 3.4, Monocytes # (Auto) 0.7, Eosinophils # (Auto) 0.3, Basophils # (Auto) 0.0, Sodium Level 140, Potassium Level 3.9, Chloride Level 110H, Carbon Dioxide Level 19L, Anion Gap 11, Blood Urea Nitrogen 12, Creatinine 0.73, Estimat Glomerular Filtration Rate > 60, BUN/Creatinine Ratio 16, Glucose Level 155H, Calcium Level 8.5, Phosphorus Level 3.1, Magnesium Level 1.6 Microbiology 01/18/20 MRSA Screen - Final, Complete MRSA not isolated 01/18/20 Blood Culture - Preliminary, Resulted No growth 01/18/20 Urine Culture - Final, Complete Mixed Bacterial Marianela Escherichia coli Home Meds Active Eliquis (Apixaban) 5 Mg Tablet 5 Mg PO BID 30 Days TAKE 2 TABLETS BID X 6 DAYS (LAST DOSE 01/26/20), THEN 1 TABLET BID Cefdinir 300 Mg Capsule 300 Mg PO BID Reported Gummi Bear Multivitamin (Multivitamin) 1 Each Tab.chew 2 Each PO DAILY Citracal-Vit D 250 mg-200 Tab (Calcium Citrate/Vitamin D3) 1 Each Tablet 1 Each PO DAILY l-Lysine (Lysine) 500 Mg Tablet 500 Mg PO DAILY PRN Glimepiride 4 Mg Tablet 4 Mg PO DAILY LAST FILLED 07-14-2019 #90/90 DAY SUPPLY (WAS TAKING GLIMEPIRIDE [facility] AND IS NOW TAKING GL[facility]PIRIDE AGAIN) Trulicity (Dulaglutide) 1.5 Mg/0.5 Ml Pen.injctr 1.5 Mg SC SATURDAY USES ONCE WEEKLY ON SUNDAYS Lisinopril 40 Mg Tablet 40 Mg PO HS Metformin HCl 500 Mg Tablet 1,000 Mg PO BID TAKES 2 (500MG) TABS TWICE DAILY Levemir Flextouch (Insulin Detemir) 100 Unit/1 Ml Insuln.pen 33 Units SC BID Assessment/Pt Instructions Dr Beebe this week Discharge Planning: <30 minutes discharge planning Discharge Instructions Discharge Diet: ADA Diet Activity as Tolerated: Yes Discharge Physical Examination Vital Signs Vital Signs Date Time Temp Pulse Resp B/P (MAP) Pulse Ox O2 Delivery O2 Flow Rate FiO2 01/20/20 08:06 36.6 90 18 140/81 (100) 97 Room Air 01/18/20 21:01 21 General Appearance: No Apparent Distress, WD/WN Respiratory: Lungs Clear Cardiovascular: Regular Rate, Rhythm Allergies: Coded Allergies: No Known Drug Allergies (Verified , 12/16/09) Discharge Summary Date of Admission Jan 18, 2020 at 18:40 Date of Discharge Discharge Date: Jan 20, 2020 Admission Diagnosis Assessment: Acute bilateral PE non-saddle type Recent right reverse shoulder replacement 8 weeks ago in [place] Left leg DVT acute on doppler today DM HTN HLP Suspect STEPHEN Acute UTI Suspect STEPHEN? Obesity Plan: OAC Dr Lindsay ECHO Abx UCx DC tomorrow? Discharge Diagnosis (1) Bilateral pulmonary embolism Status: Acute (2) Diabetes (3) Left leg DVT (4) Hx of shoulder replacement (5) Obesity (6) Leukocytosis (7) Urinary tract infection Status: Acute Clinical Quality Measures DVT/VTE Risk/Contraindication: Risk Factor Score Per Nursin RFS Level Per Nursing on Admit: 4+=Very High HUSAM ROSEN DO Jan 20, 2020 10:10
--- NOTE | 2020-01-20 10:25 | NUR ---
CM/SS: Visited with pt as to plan for discharge Plan: Pt will return home and be discharged today Summary: Pt needed some assistance in getting a short fill of her medications as she normally uses the mail order. Pharmacists Dionte is consulted and he is able to assist the pt with notifying the pharmacy with the savings card information, for the short fill of the medication. Pt is ready to return home. Pt will be discharged later today to return home.
[2020-01-20] MEDS ORDERED: metFORMIN 500 MG (GLUCOPHAGE) TAB PO SCH (18:14)
[2020-01-26] MEDS ORDERED: APIXABAN 5 MG (ELIQUIS) TABLET PO SCH (09:00)
== END 2020-01-20 10:04 | disposition home or self-care (01) | DRG 176 ==
LOC: EDUNIT# 17:35 → ER 17:36 → ICU 18:40
PROVIDERS: ADMIT Internal Medicine; ATTEND Internal Medicine
DX: I26.99 Other pulmonary embolism without acute cor pulmonale (principal); I82.412 Acute embolism and thrombosis of left femoral vein; I82.432 Acute embolism and thrombosis of left popliteal vein; N39.0 Urinary tract infection, site not specified; E66.9 Obesity, unspecified; Z68.41 Body mass index [BMI] 40.0-44.9, adult; I11.9 Hypertensive heart disease without heart failure; E11.9 Type 2 diabetes mellitus without complications; E78.5 Hyperlipidemia, unspecified; Z79.4 Long term (current) use of insulin; Z96.611 Presence of right artificial shoulder joint
CPT/HCPCS: 36415; 71045; 71275; 80048; 80053; 81000; 82962; 83605; 83735; 83880; 84100; 84145; 84484; 85007; 85025; 85027; 87040; 87077; 87081; 87088; 87186; 93005; 93970

== ENCOUNTER 2020-10-15 15:15 | Emergency (ER) | payer MEDICARE, OTHER ==
[~2020-10-15] VITALS: Ht 167 cm; Wt 123.0 kg
[~2020-10-15 15:15] MED LIST changes: +APIX5TAB PO; +CALC-151 PO; +CEFD300C3 PO; +DULA1.5P2 SC; +GLIM4TAB5 PO; +INSU100I29 SC; +LISI40TA PO; +LYSI500T10 PO; +METF-397 PO; +MULT-192 PO; +RIVA1TAB PO
[2020-10-15] MEDS ORDERED: ONDANSETRON 4 MG/2 ML (SDV) Z0FRAN ONE (15:46)
--- NOTE | 2020-10-15 15:57 | ED Respiratory ---
General Chief Complaint: General Problems/Pain Stated Complaint: COVID POSITIVE/COUGH/FEVER/FATIGUE Nursing Triage Note: PT TESTED COVID POSITIVE TODAY ET SYMPTOMS STARTED YESTERDAY. COMPLINS OF GENERAL WEAKNESS AND HEADACHE Source: patient Exam Limitations: no limitations History of Present Illness Date Seen by Provider: Oct 15, 2020 Time Seen by Provider: 15:30 Initial Comments Patient presents ER from the clinic at [facility] with chief complaint she had symptoms yesterday of nausea vomiting shortness of breath cough subjective fevers as well as her . They both tested today positive for Covid. No other testing was done. She was told to come down here to be evaluated. She has no history of pulmonary disease COPD asthma and has never been a smoker. She is not having a productive cough. She has not taken any elective medicines today. No history of heart disease. She had a blood clot 9 months ago that was provoked by a arm shoulder surgery. She did 6 months of Eliquis and is no longer on blood thinners. Allergies and Home Medications Allergies Coded Allergies: No Known Drug Allergies (Verified , 12/16/09) Home Medications Apixaban 5 Mg Tablet, 5 MG PO BID TAKE 2 TABLETS BID X 6 DAYS (LAST DOSE 01/26/20), THEN 1 TABLET BID Prescribed by: HUSAM ROSEN on 01/19/20 1412 Benzonatate 100 Mg Capsule, 100 MG PO Q6H PRN for COUGH Prescribed by: NADIRA GONSALVES on 10/15/20 1722 Calcium Citrate/Vitamin D3 1 Each Tablet, 1 EACH PO DAILY, (Reported) Cefdinir 300 Mg Capsule, 300 MG PO BID Prescribed by: HUSAM ROSEN on 01/19/20 1159 Dulaglutide 1.5 Mg/0.5 Ml Pen.injctr, 1.5 MG SC SATURDAY, (Reported) USES ONCE WEEKLY ON SUNDAYS Glimepiride 4 Mg Tablet, 4 MG PO DAILY, (Reported) LAST FILLED 07-14-2019 #90/90 DAY SUPPLY (WAS TAKING GLIMEPIRIDE THEN SWITCHED TO [facility] AND IS NOW TAKING GLIMEPIRIDE AGAIN) Insulin Detemir 100 Unit/1 Ml Insuln.pen, 33 UNITS SC BID, (Reported) Lisinopril 40 Mg Tablet, 40 MG PO HS, (Reported) Lysine 500 Mg Tablet, 500 MG PO DAILY PRN for FEVER BLISTER , (Reported) Metformin HCl 500 Mg Tablet, 1,000 MG PO BID, (Reported) TAKES 2 (500MG) TABS TWICE DAILY Multivitamin 1 Each Tab.chew, 2 EACH PO DAILY, (Reported) Ondansetron 4 Mg Tab.rapdis, 4 MG PO Q6H PRN for NAUSEA/VOMITING Prescribed by: NADIRA GONSALVES on 10/15/20 1722 Patient Home Medication List Home Medication List Reviewed: Yes Review of Systems Review of Systems Constitutional: chills, fever, malaise EENTM: No ear discharge, No ear pain Respiratory: cough, short of breath Cardiovascular: No chest pain, No Hx of Intervention Gastrointestinal: No abdominal pain, No constipation; diarrhea, nausea Genitourinary: No dysuria Musculoskeletal: No back pain, No joint pain All Other Systems Reviewed Negative Unless Noted: Yes Past Kgdrgfu-Exaawv-Xfmdaq Hx Patient Social History Alcohol Use: Denies Use Recreational Drug Use: No Smoking Status: Never a Smoker 2nd Hand Smoke Exposure: No Recent Foreign Travel: No Contact w/Someone Who Travel: No Recent Infectious Disease Expo: No Recent Hopitalizations: Yes Immunizations Up To Date Date of Pneumonia Vaccine: Oct 28, 2017 Date of Influenza Vaccine: Aug 28, 2019 Past Medical History Surgeries: Yes (hysterectomy, gallbladder, eye surgery in 1990) Orthopedic Respiratory: No Cardiac: No High Cholesterol, Hypertension Neurological: No Reproductive Disorders: No Genitourinary: No Gastrointestinal: No Musculoskeletal: Yes (BACK SPURS) Endocrine: Yes Diabetes, Insulin dep HEENT: No Cancer: No Psychosocial: No Integumentary: No Blood Disorders: No Physical Exam Vital Signs - First Documented 10/15/20 15:35 Temp 37.1 Pulse 102 Resp 16 B/P (MAP) 126/105 (112) Pulse Ox 99 O2 Delivery Room Air Capillary Refill : Less Than 3 Seconds Height: '" Weight: lbs. oz. kg; 44.00 BMI Method: General Appearance: WD/WN, mild distress Eyes: Bilateral Eye Normal Inspection, Bilateral Eye PERRL, Bilateral Eye EOMI HEENT: PERRL/EOMI, pharynx normal Neck: full range of motion, normal inspection Respiratory: lungs clear, normal breath sounds, no respiratory distress, no accessory muscle use Cardiovascular: normal peripheral pulses, regular rate, rhythm Gastrointestinal: non tender, soft Extremities: normal range of motion, non-tender, normal capillary refill Neurologic/Psychiatric: alert, normal mood/affect, oriented x 3 Skin: normal color, warm/dry Progress/Results/Core Measures Suspected Sepsis Recent Fever Within 48 Hours: No Infection Criteria Present: None New/Unexplained Altered Menta: No Sepsis Screen: No Definite Risk SIRS Temperature: Pulse: 102 Respiratory Rate: 16 Laboratory Tests 10/15/20 15:45: White Blood Count 6.6 Blood Pressure 126 /105 Mean: 112 Laboratory Tests 10/15/20 15:45: Creatinine 0.91, Platelet Count 188, Total Bilirubin 0.5 10/15/20 16:11: INR Comment 1.0 Results/Orders Lab Results Laboratory Tests Test 10/15/20 15:45 10/15/20 16:11 Range/Units White Blood Count 6.6 4.3-11.0 10^3/uL Red Blood Count 4.31 3.80-5.11 10^6/uL Hemoglobin 13.3 11.5-16.0 g/dL Hematocrit 41 35-52 % Mean Corpuscular Volume 95 80-99 fL Mean Corpuscular Hemoglobin 31 25-34 pg Mean Corpuscular Hemoglobin Concent 32 32-36 g/dL Red Cell Distribution Width 13.7 10.0-14.5 % Platelet Count 188 130-400 10^3/uL Mean Platelet Volume 10.4 9.0-12.2 fL Immature Granulocyte % (Auto) 2 % Neutrophils (%) (Auto) 49 42-75 % Lymphocytes (%) (Auto) 31 12-44 % Monocytes (%) (Auto) 17 H 0-12 % Eosinophils (%) (Auto) 1 0-10 % Basophils (%) (Auto) 1 0-10 % Neutrophils # (Auto) 3.2 1.8-7.8 10^3/uL Lymphocytes # (Auto) 2.0 1.0-4.0 10^3/uL Monocytes # (Auto) 1.1 H 0.0-1.0 10^3/uL Eosinophils # (Auto) 0.1 0.0-0.3 10^3/uL Basophils # (Auto) 0.0 0.0-0.1 10^3/uL Immature Granulocyte # (Auto) 0.1 0.0-0.1 10^3/uL Sodium Level 136 135-145 MMOL/L Potassium Level 4.5 3.6-5.0 MMOL/L Chloride Level 106 98-107 MMOL/L Carbon Dioxide Level 19 L 21-32 MMOL/L Anion Gap 11 5-14 MMOL/L Blood Urea Nitrogen 19 H 7-18 MG/DL Creatinine 0.91 0.60-1.30 MG/DL Estimat Glomerular Filtration Rate > 60 BUN/Creatinine Ratio 21 Glucose Level 106 H 70-105 MG/DL Calcium Level 9.6 8.5-10.1 MG/DL Corrected Calcium 9.8 8.5-10.1 MG/DL Total Bilirubin 0.5 0.1-1.0 MG/DL Aspartate Amino Transf (AST/SGOT) 120 H 5-34 U/L Alanine Aminotransferase (ALT/SGPT) 155 H 0-55 U/L Alkaline Phosphatase 60 40-136 U/L C-Reactive Protein High Sensitivity 1.80 H 0.00-0.50 MG/DL Total Protein 7.5 6.4-8.2 GM/DL Albumin 3.8 3.2-4.5 GM/DL Procalcitonin 0.07 <0.10 NG/ML Prothrombin Time 13.3 12.2-14.7 SEC INR Comment 1.0 0.8-1.4 Activated Partial Thromboplast Time < 20 L 24-35 SEC D-Dimer < 0.27 0.00-0.49 UG/ML Micro Results Microbiology 10/15/20 Influenza Types A,B Antigen (JOCELYN) - Final, Complete My Orders Orders - NADIRA GONSALVES Ondansetron Injection (Zofran Injectio (10/15/20 15:46) Ondansetron Injection (Zofran Injectio (10/15/20 16:00) Lactated Ringers (Lr 1000 Ml Iv Solution (10/15/20 16:00) Cbc With Automated Diff (10/15/20 15:51) Comprehensive Metabolic Panel (10/15/20 15:51) Blood Culture (10/15/20 15:51) Sputum Culture (10/15/20 15:51) Protime With Inr (10/15/20 15:51) Partial Thromboplastin Time (10/15/20 15:51) Chest 1 View, Ap/Pa Only (10/15/20 15:51) Ed Iv/Invasive Line Start (10/15/20 15:51) Ed Iv/Invasive Line Start (10/15/20 15:51) Vital Signs Adult Sepsis Patie Q15M (10/15/20 15:51) O2 (10/15/20 15:51) Remove Rings In Anticipation O (10/15/20 15:51) Influenza A And B Antigens (10/15/20 15:51) Hs C Reactive Protein (10/15/20 15:57) Procalcitonin (Pct) (10/15/20 15:57) Fibrin Degradation Products (10/15/20 15:57) Medications Given in ED Current Medications Medications Dose Ordered Sig/Ronald Route Start Time Stop Time Status Last Admin Dose Admin Ondansetron HCl 8 mg ONCE ONCE IVP 10/15/20 16:00 10/15/20 16:01 DC 10/15/20 15:57 8 MG Vital Signs/I&O 10/15/20 10/15/20 15:35 17:30 Temp 37.1 Pulse 102 91 Resp 16 18 B/P (MAP) 126/105 (112) 113/53 Pulse Ox 99 99 O2 Delivery Room Air Room Air Capillary Refill : Less Than 3 Seconds Blood Pressure Mean: 112 Progress Note : Time: 17:07 Progress Note Patient presents tachypneic and heart rate in the low 90s. No white count. She meets sepsis criteria however she has known COVID-19. She has a right basilar infiltrate which could be related to pneumonia or the COVID-19. Her D-dimer rules out the likelihood of a blood clot. Made 2 attempts at an ABG however her oxygen sats have remained 96 to 98%. After a liter of fluids she is 85-90 heart rate and resting comfortably. She does not qualify for oxygen and does not need inpatient stay. Were going to try and set her up for outpatient antibody treatment. We discussed that the drug is an approved but authorized for use under an emergency use act. We discussed the benefits and alternatives to receiving Bamlinivimab. The patient agrees to the therapy. She meets the inclusion criteria and does not meet any of the exclusion criteria. Data was faxed to the [facility] department. Diagnostic Imaging Diagonstic Imaging: Xray Plain Films/CT/US/NM/MRI: chest Comments NAME: GUSTAVO OWENS [facility] REC#: [id number] PT STATUS: REG ER : 1950 PHYSICIAN: NADIRA GONSALVES MD ADMIT DATE: 10/15/20/ER Draft Date of Exam:10/15/20 CHEST 1 VIEW, AP/PA ONLY INDICATION: Covid positive. COMPARISON: Prior examination from 01/20/2020. FINDINGS: The heart size is normal. Mediastinum is unremarkable. There is a questionable patchy right base infiltrate. There is no pleural fusion or pneumothorax. The mediastinum is unremarkable. IMPRESSION: Questionable patchy right base infiltrate, possibly pneumonia. Recommend clinical correlation. Dictated on workstation # [id number] Dict: 10/15/20 1654 Trans: 10/15/201656 [facility] [id number] Interpreted by: VALENCIA FERNANDEZ MD Electronically signed by: Reviewed: Reviewed by Me Departure Impression Primary Impression: COVID-19 Disposition: 01 HOME, SELF-CARE Condition: Stable Departure-Patient Inst. Decision time for Depature: 17:21 Referrals: NING SHETH MD (PCP/Family) Primary Care Physician Patient Instructions: Coronavirus Disease 2019 (COVID-19) (DC) Add. Discharge Instructions: Drink plenty of fluids. Tylenol and ibuprofen as necessary for body aches and fever. Return to the nearest ER if you are having worsening shortness of breath, chest pain or other worrisome symptoms. Ondansetron 1 tablet every 6 hours as necessary for nausea and/or vomiting. Tessalon Perles 1 capsule every 6 hours as necessary for cough. All discharge instructions reviewed with patient and/or family. Voiced understanding. Scripts Benzonatate (Tessalon Perle) 100 Mg Capsule 100 MG PO Q6H PRN for COUGH, #30 CAP 0 Refills Prov: NADIRA GONSALVES 10/15/20 Ondansetron (Ondansetron Odt) 4 Mg Tab.rapdis 4 MG PO Q6H PRN for NAUSEA/VOMITING, #8 TAB 0 Refills Prov: NADIRA GOSNALVES 10/15/20 NADIRA GONSALVES Oct 15, 2020 15:57
[2020-10-15 16:00] LABS: BASOPHILS % (AUTO) 1 % (0-10); EOSINOPHILS # (AUTO) 0.1 10^3/uL (0.0-0.3); EOSINOPHILS % (AUTO) 1 % (0-10); HEMATOCRIT 41 % (35-52); HEMOGLOBIN 13.3 g/dL (11.5-16.0); LYMPHOCYTES % (AUTO) 31 % (12-44); MEAN CORPUSCULAR HEMOGLOBIN 31 pg (25-34); MEAN CORPUSCULAR HGB CONC 32 g/dL (32-36); MEAN CORPUSCULAR VOLUME 95 fL (80-99); MEAN PLATELET VOLUME 10.4 fL (9.0-12.2); MONOCYTES # (AUTO) 1.1 10^3/uL (0.0-1.0); MONOCYTES % (AUTO) 17 % (0-12); NEUTROPHILS # (AUTO) 3.2 10^3/uL (1.8-7.8); NEUTROPHILS % (AUTO) 49 % (42-75); PLATELET COUNT 188 10^3/uL (130-400); WHITE BLOOD COUNT 6.6 10^3/uL (4.3-11.0)
[2020-10-15] MEDS ORDERED: ONDANSETRON 4 MG/2 ML (SDV) Z0FRAN IVP ONE (16:00)
[2020-10-15] MEDS ORDERED: LACTATED RINGERS 1,000 ML IV SCH (16:00)
[2020-10-15 16:07] LABS: ALBUMIN 3.8 GM/DL (3.2-4.5); CHLORIDE 106 MMOL/L (98-107); POTASSIUM 4.5 MMOL/L (3.6-5.0); SODIUM 136 MMOL/L (135-145)
[2020-10-15 16:08] LABS: CALCIUM 9.6 MG/DL (8.5-10.1)
[2020-10-15 16:09] LABS: GLUCOSE 106 MG/DL (70-105); TOTAL PROTEIN 7.5 GM/DL (6.4-8.2)
[2020-10-15 16:11] LABS: BILIRUBIN,TOTAL 0.5 MG/DL (0.1-1.0); CARBON DIOXIDE 19 MMOL/L (21-32)
[2020-10-15 16:13] LABS: ALKALINE PHOSPHATASE 60 U/L (40-136); CREATININE SERUM 0.91 MG/DL (0.60-1.30); GFR ESTIMATED > 60
[2020-10-15 16:14] LABS: BUN/CREATININE RATIO 21
[2020-10-15 16:16] LABS: ALANINE AMINOTRANSFERASE 155 U/L (0-55)
[2020-10-15 16:48] LABS: PROTHROMBIN TIME PATIENT 13.3 SEC (12.2-14.7)
[2020-10-15 16:49] LABS: FIBRIN DEGRADATION PRODUCTS < 0.27 UG/ML (0.00-0.49); PARTIAL THROMBOPLASTIN TIME < 20 SEC (24-35)
--- NOTE | 2020-10-15 16:57 | Diagnostic Imaging Report ---
INDICATION: Covid positive. COMPARISON: Prior examination from 01/20/2020. FINDINGS: The heart size is normal. Mediastinum is unremarkable. There is a questionable patchy right base infiltrate. There is no pleural fusion or pneumothorax. The mediastinum is unremarkable. IMPRESSION: Questionable patchy right base infiltrate, possibly pneumonia. Recommend clinical correlation. Dictated by: Dictated on workstation # [id number]
[2020-10-15] MEDS ORDERED: BENZ-13 PO (17:22)
[2020-10-15] MEDS ORDERED: ONDA4TAB11 PO (17:22)
[2020-10-15 17:30] VITALS: BP 113/53
== END 2020-10-15 17:30 | disposition home or self-care (01) ==
LOC: EDUNIT# 15:15 → ER 15:16
DX: U07.1 COVID-19 (principal); E11.9 Type 2 diabetes mellitus without complications; I10 Essential (primary) hypertension; Z79.01 Long term (current) use of anticoagulants; Z79.4 Long term (current) use of insulin
CPT/HCPCS: 36415; 71045; 80053; 84145; 85025; 85379; 85610; 85730; 86141; 87040; 87804

== ENCOUNTER → 2020-10-17 | Outpatient (CLI) | payer MEDICARE, OTHER ==
[~2020-10-17] VITALS: Ht 167 cm; Wt 123.0 kg
[~2020-10-17] MED LIST changes: +BAMLANIVIMAB 700 MG in NS 200 ML IV ONE; +BENZ-13 PO; +EPINEPHrine INJECTION 1 MG/ML AMP IM PRN; +ONDA4TAB11 PO; +diphenhydrAMINE 50 MG/ML INJ (BENADRYL) IV PRN
[2020-10-17 12:40] VITALS: BP_DIAS 119
[2020-10-17 15:28] VITALS: BP 138/54
== END ==
LOC: INFUSION 12:49
PROVIDERS: ATTEND Family Medicine
DX: Z23 Encounter for immunization (principal)

== ENCOUNTER → 2021-03-01 | Outpatient (CLI) | payer MEDICARE, OTHER ==
[~2021-03-01] MED LIST changes: -BAMLANIVIMAB 700 MG in NS 200 ML IV ONE; -EPINEPHrine INJECTION 1 MG/ML AMP IM PRN; -LISI40TA PO; +LISI40TA9 PO; -diphenhydrAMINE 50 MG/ML INJ (BENADRYL) IV PRN
--- NOTE | 2021-03-01 10:01 | Diagnostic Imaging Report ---
PROCEDURE: CT head without contrast. TECHNIQUE: Multiple contiguous axial images were obtained through the brain without the use of intravenous contrast. Auto Exposure Controls were utilized during the CT exam to meet ALARA standards for radiation dose reduction. INDICATION: Headache. CORRELATION STUDY: 12/16/2009. FINDINGS: Mild generalized prominence of the ventricles and sulci. There are no abnormal areas of decreased attenuation to suggest edema. No midline shift or mass effect. Basal ganglia calcifications are present. No intracranial hemorrhage. Dominant left vertebral artery. No hyperdense intracranial vascular sign. Bony calvarium is intact. Small soft tissue scalp nodule posteriorly on the right vertex may reflect a small skin lesion. Paranasal sinuses are clear. IMPRESSION: Negative for acute intracranial abnormality. Dictated by: Dictated on workstation # [id number]
== END ==
LOC: RAD FS 08:58
PROVIDERS: ATTEND Family Medicine
DX: G44.52 New daily persistent headache (NDPH) (principal)
CPT/HCPCS: 70450

== ENCOUNTER → 2021-05-09 | Outpatient (CLI) | payer MEDICARE, OTHER ==
--- NOTE | 2021-05-09 15:57 | Diagnostic Imaging Report ---
PROCEDURE: US Thyroid. TECHNIQUE: Multiple real-time grayscale images were obtained of the thyroid in various projections. INDICATION: Follow-up of multinodular goiter. COMPARISON with previous thyroid ultrasound of 05/11/2019. FINDINGS: The right lobe measures 4.8 x 2.1 x 2.3 cm. There are 3 nodules. The largest nodule is along the upper pole with hypoechoic appearance. This is well-circumscribed and homogeneous in appearance. There are no calcifications. Wider than tall. This measures 1.5 x 1 x 1 cm. A second nodule in the midportion is heterogeneous and somewhat ill-defined with mild lobulation measuring 1 x 0.6 x 1 cm. Hypoechoic nodule in the lower pole measures 1 x 0.6 x 0.5 cm. The left lobe measures 4.9 x 2.4 x 1.8 cm. There are 2 hypoechoic oval well-circumscribed nodules present in the upper and midportion. Upper pole measures 1.2 x 0.5 x 0.8 cm. Middle nodule measures 0.9 x 0.5 x 0.8 cm. There is a heterogeneous nodule in the lower pole measuring 9 x 9 x 5 mm which is well-circumscribed. There are no calcifications. The isthmus measures 9 mm. IMPRESSION: Multinodular appearance. These have changed very little when compared with previous exam. There has been very slight increase in size of the nodule in the right upper lobe and the nodule in the left lower lobe. TI-RADS 3 Dictated by: Dictated on workstation # [id number]
== END ==
LOC: RAD 14:30
PROVIDERS: ATTEND Otolaryngology Otolaryngology/Facial Plastic Surgery
DX: E04.2 Nontoxic multinodular goiter (principal)
CPT/HCPCS: 36415; 76536; 84436; 84443

== ENCOUNTER → 2021-10-23 | Outpatient (CLI) | payer MEDICARE, OTHER ==
--- NOTE | 2021-10-23 12:24 | Diagnostic Imaging Report ---
INDICATION: Routine screening. Comparison is made with prior mammogram 05/11/2019 and 05/06/2018. 2-D and 3-D bilateral screening mammography was performed with CAD. Both breasts are heterogeneously dense, limiting the sensitivity of mammography. Circumscribed nodules in both breasts appear stable and consistent with benign etiologies. No spiculated mass or malignant-appearing microcalcifications are seen. Axillae are unremarkable. IMPRESSION: No mammographic features suspicious for malignancy are identified. BI-RADS Category 2 ACR BI-RADS Category 2: Benign findings. Result letter will be mailed to the patient. Note: At least 10% of breast cancer is not imaged by mammography. Dictated by: Dictated on workstation # [id number]
== END ==
LOC: RAD 09:00
PROVIDERS: ATTEND Nurse Practitioner Family
DX: Z12.31 Encounter for screening mammogram for malignant neoplasm of breast (principal)
CPT/HCPCS: 77063; 77067

== ENCOUNTER 2022-09-29 12:12 | Emergency (ER) | payer MEDICARE, OTHER ==
[~2022-09-29] VITALS: Ht 170 cm; Wt 124.0 kg
[2022-09-29 12:27] VITALS: BP 154/76
[2022-09-29 13:18] LABS: BILIRUBIN,URINE NEGATIVE (NEGATIVE); CLARITY,URINE CLEAR; COLOR,URINE YELLOW; GLUCOSE, URINE (UA) 3+ (NEGATIVE); KETONES,URINE 1+ (NEGATIVE); LEUKOCYTE ESTERASE ,URINE NEGATIVE (NEGATIVE); NITRITE,URINE NEGATIVE (NEGATIVE); PH,URINE 5.5 (5-9); PROTEIN,URINE NEGATIVE (NEGATIVE)
[2022-09-29 13:30] LABS: BACTERIA,URINE FEW /HPF
--- NOTE | 2022-09-29 13:39 | ED Abdominal Pain ---
General Chief Complaint: Back Problems Stated Complaint: POSSIBLE KIDNEY STONE, VOMITING, BACK PAIN Nursing Triage Note: RIGHT LOWER BACK PAIN STARTING THIS AM. THINKS SHE HAS A KIDNEY STONE. NO HISTORY. TOOK A PAIN PILL WHEN THE PAIN STARTED AND NOW SHE DOES NOT HURT. Source of Information: Patient Exam Limitations: No Limitations History of Present Illness Date Seen by Provider: Sep 29, 2022 Time Seen by Provider: 12:30 Initial Comments Patient is a 72-year-old female who presents to the emergency department with right back/side pain. She states the pain began this morning. She thinks she may have a kidney stone. No history of kidney stones. States she has had some nausea without vomiting. Denies any obvious blood in her urine. She states her pain resolved just prior to getting here. Allergies and Home Medications Allergies Coded Allergies: No Known Drug Allergies (Verified , 12/16/09) Patient Home Medication List Home Medication List Reviewed: Yes Apixaban (Eliquis) 5 Mg Tablet, 5 MG PO BID Prescribed by: HUSAM ROSEN on 01/19/20 1412 Benzonatate (Tessalon Perle) 100 Mg Capsule, 100 MG PO Q6H PRN for COUGH Prescribed by: NADIRA GONSLAVES on 10/15/20 1722 Calcium Citrate/Vitamin D3 (Citracal-Vit D 250 mg-200 Tab) 1 Each Tablet, 1 EACH PO DAILY, (Reported) Entered as Reported by: IGNACIO FINK on 01/19/20 0838 Cefdinir (Cefdinir) 300 Mg Capsule, 300 MG PO BID Prescribed by: HUSAM ROSEN on 01/19/20 1159 Dulaglutide (Trulicity) 1.5 Mg/0.5 Ml Pen.injctr, 1.5 MG SC SATURDAY, (Reported) Entered as Reported by: IGNACIO FINK on 01/19/20 08 Glimepiride (Glimepiride) 4 Mg Tablet, 4 MG PO DAILY, (Reported) Entered as Reported by: IGNACIO FINK on 01/19/20 08 Insulin Detemir (Levemir Flextouch) 100 Unit/1 Ml Insuln.pen, 33 UNITS SC BID, (Reported) Entered as Reported by: IGNACIO FINK on 01/19/20 0838 Lisinopril (Lisinopril) 40 Mg Tablet, 40 MG PO HS, (Reported) Entered as Reported by: IGNACIO FINK on 01/19/20837 Lysine (l-Lysine) 500 Mg Tablet, 500 MG PO DAILY PRN for FEVER BLISTER , (Reported) Entered as Reported by: IGNACIO FINK on 01/19/20837 Metformin HCl (Metformin HCl) 500 Mg Tablet, 1,000 MG PO BID, (Reported) Entered as Reported by: IGNACIO FINK on 01/19/20837 Multivitamin (Gummi Bear Multivitamin) 1 Each Tab.chew, 2 EACH PO DAILY, (Reported) Entered as Reported by: IGNACIO FINK on 01/19/20837 Ondansetron (Ondansetron Odt) 4 Mg Tab.rapdis, 4 MG PO Q6H PRN for NAUSEA/VOMITING Prescribed by: NADIRA GONSALVES on 10/15/20 172 Review of Systems Review of Systems Constitutional: no symptoms reported EENTM: No Symptoms Reported Respiratory: No Symptoms Reported Cardiovascular: No Symptoms Reported Gastrointestinal: See HPI, Abdominal Pain Genitourinary: No Symptoms Reported Musculoskeletal: no symptoms reported Skin: no symptoms reported Psychiatric/Neurological: No Symptoms Reported Past [id number]-[id number]-[id number] Hx Patient Social History Smoking Status: Never a Smoker Substance use?: No Alcohol Use?: No Immunizations Up To Date Second COVID19 Vaccination Antony: UNKNOWN COVID19 Vaccine Insurance Case Manager: RADHA Past Medical History Surgeries: Yes (hysterectomy, gallbladder, eye surgery in 1990) Orthopedic Respiratory: No Cardiac: No High Cholesterol, Hypertension Neurological: No Reproductive Disorders: No Genitourinary: No Gastrointestinal: No Musculoskeletal: Yes (BACK SPURS) Endocrine: Yes Diabetes, Insulin dep HEENT: No Cancer: No Psychosocial: No Integumentary: No Blood Disorders: No Physical Exam Vital Signs Vital Signs - First Documented 09/29/22 12:27 Temp 36.6 Pulse 75 Resp 16 B/P (MAP) 154/76 (102) Pulse Ox 99 O2 Delivery Room Air Capillary Refill : Less Than 3 Seconds Height/Weight/BMI Height: '" Weight: lbs. oz. kg; 42.00 BMI Method: General Appearance: WD/WN, no apparent distress HEENT: PERRL/EOMI, normal ENT inspection, TMs normal, pharynx normal Neck: non-tender, full range of motion, supple, normal inspection Respiratory: chest non-tender, lungs clear, normal breath sounds, no respiratory distress, no accessory muscle use Cardiovascular: regular rate, rhythm Gastrointestinal: non tender, soft, no organomegaly, no pulsatile mass Extremities: normal range of motion, non-tender, normal inspection Neurologic/Psychiatric: no motor/sensory deficits, alert, normal mood/affect, oriented x 3 Skin: normal color, warm/dry Progress/Results/Core Measures Results/Orders Lab Results Laboratory Tests Test 09/29/22 12:33 Range/Units Urine Color YELLOW Urine Clarity CLEAR Urine pH 5.5 5-9 Urine Specific [place] 1.010 L 1.016-1.022 Urine Protein NEGATIVE NEGATIVE Urine Glucose (UA) 3+ H NEGATIVE Urine Ketones 1+ H NEGATIVE Urine Nitrite NEGATIVE NEGATIVE Urine Bilirubin NEGATIVE NEGATIVE Urine Urobilinogen 0.2 < = 1.0 MG/DL Urine Leukocyte Esterase NEGATIVE NEGATIVE Urine RBC (Auto) 3+ H NEGATIVE Urine RBC 10-25 H /HPF Urine WBC NONE /HPF Urine Squamous Epithelial Cells NONE /HPF Urine Renal Epithelial Cells NONE /HPF Urine Crystals NONE /LPF Urine Bacteria FEW H /HPF Urine Casts NONE /LPF Urine Mucus NEGATIVE /LPF Urine Culture Indicated NO My Orders Orders - KAE HELTON APRN Ua Culture If Indicated (09/29/22 13:05) Vital Signs/I&O 09/29/22 12:27 Temp 36.6 Pulse 75 Resp 16 B/P (MAP) 154/76 (102) Pulse Ox 99 O2 Delivery Room Air Blood Pressure Mean: 102 Progress Progress Note : Progress Note Patient is nontoxic and well-hydrated on exam. Patient was able to urinate upon arrival and noticed a small stone in the urine. She is currently completely pain-free. Urinalysis is largely unremarkable. Patient appears to have passed a kidney stone. Will discharge home with recommendations for supportive care and follow-up with PCP as needed. Return precautions for urgent symptomology discussed. Patient verbalized understanding. Departure Impression Primary Impression: Kidney stone Disposition: 01 HOME, SELF-CARE Condition: Stable Departure-Patient Inst. Decision time for Depature: 13:35 Referrals: NING SHETH MD (PCP/Family) Primary Care Physician Patient Instructions: Kidney Stone, Adult ED KAE HELTON APRN Sep 29, 2022 13:39
== END 2022-09-29 13:42 | disposition home or self-care (01) ==
LOC: EDUNIT# 12:12 → ER 12:14
DX: N20.0 Calculus of kidney (principal); E11.9 Type 2 diabetes mellitus without complications; Z79.4 Long term (current) use of insulin; Z28.310 Unvaccinated for COVID-19
CPT/HCPCS: 81000; 99282

== ENCOUNTER → 2023-05-08 | Outpatient (CLI) | payer MEDICARE, OTHER ==
[~2023-05-08] MED LIST changes: -INSU100I29 SC; +INSU100I30 SC
[2023-05-08 11:33] LABS: FREE T4 (FREE THYROXINE) 1.2 NG/DL (0.70-1.48)
--- NOTE | 2023-05-08 17:09 | Diagnostic Imaging Report ---
EXAMINATION: US Thyroid. TECHNIQUE: Multiple real-time grayscale images were obtained of the thyroid in various projections. HISTORY: MULTINODULAR GOITER COMPARISON: 05/09/2021 FINDINGS: The right lobe of the thyroid measures 5.2 x 2.2 x 2.0 cm. Stable scattered thyroid nodules, unchanged from prior exam. There is a client representative 1.1 cm, mixed solid and cystic, wider than tall nodule with smooth margins. The left lobe of the thyroid measures 4.7 x 1.9 x 2.5 cm. Scattered anechoic nodules measuring up to 1.2 cm. There is a 1.0 cm mixed solid and cystic, isoechoic, wider than tall nodule with smooth margins. The isthmus is normal and measures 0.7 cm. No suspicious adenopathy within the visualized neck. IMPRESSION: 1. Stable mixed solid and cystic thyroid nodules measuring up to 1.1 cm on the right and 1.0 cm on the left. TI-RADS 3. TI-RADS 1: Benign No FNA or follow-up required TI-RADS 2: Not Suspicious No FNA or follow-up required TI-RADS 3: Mildly Suspicious FNA if ? 2.5 cm Follow if ? 1.5 cm (At 1, 3 and 5 years from initial scan) TI-RADS 4: Moderately Suspicious FNA if ? 1.5 cm Follow if ? 1 cm (At 1, 2, 3 and 5 years from initial scan) TI-RADS 5: Highly Suspicious FNA if ? 1 cm Follow if ? 0.5 cm (Annually for 5 years from initial scan) Dictated by: Dictated on workstation # [id number]
== END ==
LOC: RAD 10:41
PROVIDERS: ATTEND Nurse Practitioner
DX: E04.2 Nontoxic multinodular goiter (principal)
CPT/HCPCS: 36415; 76536; 84439; 84443